=== PATIENT | female | born 1935 | race Caucasian/White ===

== ENCOUNTER 2017-01-15 15:36 | Emergency (ER) | payer MEDICARE, OTHER ==
[2017-01-15 15:41] VITALS: BP 188/74
--- NOTE | 2017-01-15 16:08 | UC ---
Knee Pain HPI - HPI Summary HPI Summary: FELL WHILE WALKING TODAY AROUND 2PM. LANDED ON CONCRETE ON HER KNEES. SMALL ABRASION LEFT KNEE BUT MOST OF THE PAIN IS IN HER RIGHT KNEE WHICH IS ALSO SWOLLEN. CAN WALK WITH A LIMP. NO PREVIOUS KNEE INJURY. HAS H/O PARKINSONS. - History of Current Complaint Chief Complaint: UCLowerExtremity Stated Complaint: FALL - BILAT KNEE INJURIES Time Seen by Provider: 01/15/17 15:59 Hx Obtained From: Patient, Family/Squeak Rattle And Leak Repairer - Onset/Duration: Sudden Onset, Lasting Hours, Still Present Severity Initially: Moderate Severity Currently: Moderate Location Of Injury: RIGHT KNEE Pain Intensity: 9 Pain Scale Used: 0-10 Numeric Character: Sharp Aggravating Factor(s): Movement, Weight Bearing Alleviating Factor(s): Rest Associated Signs And Symptoms: Positive: Swelling, Bruising Able to Bear Weight: Yes - Allergies/Home Medications Allergies/Adverse Reactions: Allergies Allergy/AdvReac Type Severity Reaction Status Date / Time No Known Allergies Allergy Verified 01/15/17 15:41 Home Medications: Home Medications Aspirin TAB* [Aspirin 325 MG TAB*] 650 mg PO PRN 01/15/17 [History] Carbidopa/Levodop 10/100 MG(*) [Sinemet 10/100 TAB(*)] 1 tab PO TID 01/15/17 [ History Confirmed 01/15/17] PMH/Surg Hx/FS Hx/Imm Hx Other Neurological History: PARKINSONS DISEASE - Surgical History Surgical History: None - Family History Known Family History: Negative: Hypertension, Diabetes - Social History Alcohol Use: Occasionally Substance Use Type: None Smoking Status (MU): Never Smoked Tobacco Review of Systems Constitutional: Negative Skin: Other - ABRASIONS Respiratory: Negative Cardiovascular: Negative Gastrointestinal: Negative Musculoskeletal: Arthralgia, Decreased ROM, Edema All Other Systems Reviewed And Are Negative: Yes Physical Exam Triage Information Reviewed: Yes Appearance: Well-Appearing, No Pain Distress, Well-Nourished Vital Signs: Initial Vital Signs Temp 98 F 01/15/17 15:38 Pulse 64 01/15/17 15:38 Resp 16 01/15/17 15:38 BP 188/74 01/15/17 15:38 Pulse Ox 99 01/15/17 15:38 Vital Signs Reviewed: Yes Eyes: Positive: Conjunctiva Clear ENT: Positive: Hearing grossly normal Neck: Positive: Supple Respiratory: Positive: No respiratory distress, No accessory muscle use Cardiovascular: Positive: Pulses Normal Abdomen Description: Positive: Soft Musculoskeletal: Positive: ROM Limited @ - RIHGT KNEE, Edema @ - RIGHT KNEE, Other: - KNEE EXAM LIMITED BY PT DISCOMFORT. MILDLY TENDER DIFFUSELY. NO JOINT LINE TENDERNESS SPECIFICALLY. LIGAMENTS INTACT TO VARUS AND VALGUS STERSS TESTING. Neurological: Positive: Alert Psychological: Positive: Age Appropriate Behavior Skin: Positive: Other - SPFL ABRASIONS BILATERAL KNEES Diagnostics - Radiology RIGHT KNEE XRAY Xray Interpretation: Positive (See Comments) - Anterior soft tissue swelling and small joint effusion. No fracture evident. Radiology Interpretation Completed By: Radiologist Knee Pain Course/Dx - Course Course Of Treatment: XRAY SHOWS SOFT TISSUE SWELLING AND EFFUSION. KNEE IMMOBILIZER. FOLLOW-UP ORTHO. - Differential Dx/Diagnosis Provider Diagnoses: RIGHT KNEE CONTUSION/EFFUSION Discharge - Discharge Plan Condition: Stable Disposition: HOME Patient Education Materials: Contusion in Adults (ED), Swollen Knee Joint (ED) Referrals: Katerin Sullivan MD [Medical Doctor] - 1 Week Juju Canela MD [Primary Care Provider] - If Needed Additional Instructions: NO FRACTURE SEEN ON XRAY TODAY. SOFT TISSUE SWELLING AND EFFUSION. CONTUSION: Your injury has resulted in a contusion -- a crushing of the deep tissues. No injury to important structures was detected during the physician's exam. Contusions vary in the amount of pain they cause, and in the length of time required for healing. Typically, the area will become bruised, and will remain painful to touch for two or three weeks. However, most patients are back to working and playing within a few days. After the initial period of rest and cold-packs, your symptoms (together with the doctor's recommendations) will determine how rapidly you can get back to full activity. Usually this means "do what feels okay, but don't do things that hurt." If re-examination was recommended, it's important to follow up as instructed. Call the doctor or return any time if pain increases, if swelling becomes severe, if you develop numbness or weakness in an injured extremity, or if any other alarming symptoms occur. REST, ICE, COMPRESS, ELEVATE. FOLLOW-UP WITH ORTHO.
--- NOTE | 2017-01-15 16:37 | RAD ---
Indication: RIGHT knee pain and edema post fall. Comparison: None. Technique: RIGHT knee: AP, tunnel, lateral, sunrise views. Report: Bone density appears decreased corresponding with osteoporosis on April 01, 2016 DEXA scan. Small suprapatellar joint effusion. No cortical disruption or suspicious trabecular irregularity to suggest fracture. Normal articular alignment. Preserved joint spaces. Subtle chondrocalcinosis at the medial and lateral joint compartments. Anterior soft tissue swelling. IMPRESSION: Anterior soft tissue swelling and small joint effusion. No fracture evident.
== END 2017-01-15 17:16 | disposition home or self-care (01) ==
LOC: UCEAST 15:36
DX: S80.01XA Contusion of right knee, initial encounter (principal); M25.461 Effusion, right knee; W19.XXXA Unspecified fall, initial encounter; Y93.9 Activity, unspecified; Y92.9 Unspecified place or not applicable; Y99.9 Unspecified external cause status; G20 Parkinson's disease
CPT/HCPCS: 99212; G0463

== ENCOUNTER 2017-09-22 14:22 | Emergency (ER) | payer MEDICARE, OTHER ==
[2017-09-22] MEDS ORDERED: NS 0.9% 1000 ML* 1,000 ML IV ONE (17:19)
[2017-09-22] MEDS ORDERED: Ondansetron INJ* 2 MG/ML VIAL IV ONE (17:24)
[2017-09-22 17:38] LABS: ABS Basophils 0.1 10^3/ul (0-0.2); ABS Eosinophils 0.1 10^3/ul (0-0.6); ABS Lymphocytes 1.3 10^3/ul (1.0-4.8); ABS Monocytes 0.4 10^3/ul (0-0.8); ABS Neutrophils 4.6 10^3/ul (1.5-7.7); ABS Nucleated RBC 0 10^3/ul; Eosinophil % 2.1 % (0-6); Hematocrit 44 % (35-47); Hemoglobin 14.9 g/dl (12.0-16.0); Lymphocyte % 20.1 % (25-47); Mean Corpuscular HGB Conc 34 g/dl (31-36); Mean Corpuscular Hemoglobin 29 pg (27-31); Mean Corpuscular Volume 86 fL (80-97); Mean Platelet Volume 8.1 um3 (7.4-10.4); Nucleated Red Blood Cells % 0.2; Platelet Count 306 10^3/ul (150-450); Red Blood Count 5.13 10^6/ul (4.0-5.4); Red Cell Distribution Width 14 % (10.5-15); White Blood Count 6.6 10^3/ul (3.5-10.8)
[2017-09-22 17:54] LABS: EGFR Non-African American 80.1 (>60)
[2017-09-22 18:20] LABS: Urine Appearance Clear; Urine Blood 2+ (Negative); Urine Color Straw; Urine Ketones 1+ (Negative); Urine Protein Negative (Negative); Urine Specific Gravity 1.009 (1.010-1.030); Urine Urobilinogen Negative (Negative)
[2017-09-22] MEDS ORDERED: Iohexol 300* (CONTRAST) 10 ML SDV IV ONE (18:44)
--- NOTE | 2017-09-22 19:49 | RAD ---
INDICATION: Abdominal pain and constipation COMPARISON: KUB September 22, 2017 TECHNIQUE: Axial source images were obtained from the hemidiaphragms to the symphysis pubis following administration of oral and intravenous contrast. 65 mL Omnipaque 300 was utilized. Coronal and sagittal reconstructed images were acquired. Lung bases: The lung bases are clear. Liver: The liver is normal in size. There are no masses. There is no ductal dilatation. Gallbladder: There are no calcified gallstones. There is no evidence of wall thickening or pericholecystic fluid. Spleen: The spleen is normal in size. There are no masses. Pancreas: There is no focal pancreatic mass or ductal dilatation. Adrenal glands: There is no evidence of adrenal mass. Kidneys: The kidneys are normal in size and position. There are prompt nephrograms and there is prompt excretion bilaterally. There is a 5 mm hypodensity in the lower pole left kidney likely representing a small cyst. There is no evidence of nephrolithiasis. Adenopathy: There is no evidence of adenopathy by size criteria. Fluid collections: There are no free or localized fluid collections. Vessels:There are no significant atherosclerotic changes involving the aorta. There is no focal aneurysm. The iliac vessels are normal in caliber. The IVC appears normal. GI tract: There are no acute CT bowel findings. There is no obstruction. The stomach and small bowel appear normal. There is significant colonic redundancy. There is stool and transverse and left colon Pelvic organs: The uterus and adnexa appear normal Bladder: There are no bladder masses. Abdominal and pelvic soft tissues: The extraperitoneal abdominal and pelvic soft tissues appear normal.. Osseous structures: There are no acute osseous findings. Other: None IMPRESSION: COLONIC REDUNDANCY WITH RETAINED STOOL LEFT COLON
[2017-09-22 22:40] VITALS: BP 157/64
--- NOTE | 2017-09-23 05:05 | ED ---
Kane Chandler Tecjoon, scribed for Vitaliy Saavedra MD on 09/22/17 at 2157 . Progress - Progress Note Progress Note: CT Abd/Pel reveals, per radiologist, IMPRESSION: COLONIC REDUNDANCY WITH RETAINED STOOL LEFT COLON. ED physician has reviewed this radiology report. Course/Dx - Course Course Of Treatment: Patient was received from Dr. Mas at sign out, awaiting CT Abd/Pel. CT Abd/Pel reveals, per radiologist, IMPRESSION: COLONIC REDUNDANCY WITH RETAINED STOOL LEFT COLON. ED physician has reviewed this radiology report. Patient will be discharged home with dx of constipation. Patient is very anxious to leave. Patient is advised to follow up with PCP in 3 days. Patient is agreeable to this plan. - Diagnoses Provider Diagnoses: Constipation Discharge - Sign-Out/Discharge Documenting (check all that apply): Discharge - discharged, Receiving Sign-Out Receiving patient FROM: Clarence Mas - Discharge Plan Condition: Stable Disposition: HOME Patient Education Materials: Constipation (ED) Referrals: Juju Canela MD [Primary Care Provider] - 3 Days Additional Instructions: Return to ED for any new or worsening symptoms. The documentation as recorded by the Kane cruz Tecjoon accurately reflects the service I personally performed and the decisions made by Quentin oneill Abdul, MD.
--- NOTE | 2017-09-24 17:44 | PN ---
Progress Note - Progress Note Date of Service: 09/24/17 Note: Patient urine culture grew Strept dysgalactiae 10-25,000 and normal elinor 1-10, 000. as this is not a significant amount and likely a contaminant as is normal elinor growth will not treat at this time.
--- NOTE | 2017-09-26 08:03 | ED ---
Gene Chandler Angela, scribed for Clarence Mas MD on 09/22/17 at 1720 . GI/ HPI - HPI Summary HPI Summary: This pt is a 82 y/o female presenting to [facility] referred by her PCP c/o constipation. Pt reports that over the past 2-3 weeks it has been impossible to have a bowel movement. She states that she has used laxatives and suppositories with no relief. Pt notes only "brown fluffy stuff" and liquid come out when having a bowel movement. She additionally notes nausea and abdominal pain. Denies vomiting. Pt had an abdomen XR and was called by Dr. Canela (her PCP) to let her know that she had a blockage and needed to come to the ED. PMHx: Parkinson's disease. - History of Current Complaint Chief Complaint: EDGeneral Time Seen by Provider: 09/22/17 17:13 Stated Complaint: ENEMA(DR BOWEN) Hx Obtained From: Patient Onset/Duration: Started Weeks Ago, Still Present Timing: Constant, Lasting Weeks Current Severity: Severe Pain Intensity: 3 Location of Pain: Diffuse Pain Characteristics: Aching Associated Signs and Symptoms: Positive: Nausea, Constipation, Abdominal Pain. Negative: Vomiting, Diarrhea, Fever Aggravating Factor(s): Nothing Alleviating Factor(s): Nothing - Allergy/Home Medications Allergies/Adverse Reactions: Allergies Allergy/AdvReac Type Severity Reaction Status Date / Time No Known Allergies Allergy Verified 09/22/17 17:02 PMH/Surg Hx/FS Hx/Imm Hx Endocrine/Hematology History: Denies: Hx Diabetes Cardiovascular History: Denies: Hx Hypertension Neurological History: Reports: Other Neuro Impairments/Disorders - Parkinson's disease Infectious Disease History: No Infectious Disease History: Denies: Traveled Outside the [place] in Last 30 Days - Family History Known Family History: Negative: Hypertension, Diabetes - Social History Alcohol Use: Occasionally Substance Use Type: Reports: None Smoking Status (MU): Never Smoked Tobacco Review of Systems Negative: Fever Eyes: Negative ENT: Negative Gastrointestinal: Other - constipation Positive: Abdominal Pain, Nausea. Negative: Vomiting Musculoskeletal: Negative Skin: Negative Neurological: Negative All Other Systems Reviewed And Are Negative: Yes Physical Exam - Summary Physical Exam Summary: VITAL SIGNS: Reviewed. GENERAL: Patient is a well-developed and nourished female who is lying comfortable in the stretcher. Patient is not in any acute respiratory distress. Pt seems to be dehydrated. HEAD AND FACE: No signs of trauma. No ecchymosis, hematomas or skull depressions. No sinus tenderness. EYES: PERRLA, EOMI x 2, No injected conjunctiva, no nystagmus. EARS: Hearing grossly intact. Ear canals and tympanic membranes are within normal limits. MOUTH: Oropharynx within normal limits. NECK: Supple, trachea is midline, no adenopathy, no JVD, no carotid bruit, no c- spine tenderness, neck with full ROM. CHEST: Symmetric, no tenderness at palpation LUNGS: Clear to auscultation bilaterally. No wheezing or crackles. CVS: Regular rate and rhythm, S1 and S2 present, no murmurs or gallops appreciated. ABDOMEN: Soft, non-tender. No signs of distention. No rebound no guarding, and no masses palpated. Decreased bowel sounds. EXTREMITIES: FROM in all major joints, no edema, no cyanosis or clubbing. NEURO: Alert and oriented x 3. No acute neurological deficits. Speech is normal and follows commands. SKIN: Dry and warm. There is increased turgor of the skin. Triage Information Reviewed: Yes Vital Signs On Initial Exam: Initial Vitals Temp Pulse Resp BP Pulse Ox 98.8 F 66 19 196/77 99 09/22/17 14:31 09/22/17 14:31 09/22/17 14:31 09/22/17 14:31 09/22/17 14:31 Vital Signs Reviewed: Yes Diagnostics - Vital Signs Vital Signs Temp Pulse Resp BP Pulse Ox 09/22/17 17:00 60 173/70 100 09/22/17 16:55 62 100 09/22/17 16:53 193/74 09/22/17 15:46 98.2 F 57 153/71 100 09/22/17 14:31 98.8 F 66 19 196/77 99 - Laboratory Result Diagrams: 09/22/17 17:30 09/22/17 17:30 Lab Statement: Any lab studies that have been ordered have been reviewed, and results considered in the medical decision making process. - Radiology Chest XR Xray Interpretation: Positive (See Comments) - IMPRESSION: Nonspecific bowel gas pattern. Large amount of stool within the colon. Dr. Mas has reviewed this radiology report Radiology Interpretation Completed By: Radiologist JERMAINU Course/Dx - Course Assessment/Plan: This pt is a 82 y/o female presenting to [facility] referred by her PCP c/o constipation. Pt reports that over the past 2-3 weeks it has been impossible to have a bowel movement. She states that she has used laxatives and suppositories with no relief. Pt notes only "brown fluffy stuff" and liquid come out when having a bowel movement. She additionally notes nausea and abdominal pain. Denies vomiting. Pt had an abdomen XR and was called by Dr. Canela (her PCP) to let her know that she had a blockage and needed to come to the ED. PMHx: Parkinson's disease. Test results without any significant abnormalities except for ALT of 3. In the ED course the pt was given IV fluids and Zofran. Chest XR (ordered by Dr. Canela) shows nonspecific bowel gas pattern. Large amount of stool within the colon. I ordered a CT abdomen/pelvis and at this point it is still pending. Therefore the pt will be signed out to Dr. Saavedra to follow up on the abd/pelvis CT for further work up and management. Pt is hemodynamically stable, alert and oriented x3. - Diagnoses Provider Diagnoses: Constipation, Abdominal pain Discharge - Sign-Out/Discharge Documenting (check all that apply): Sign-Out Patient Signing out patient TO: Vitaliy Saavedra - pending dispo, awaiting CT A/P - Discharge Plan Condition: Stable Referrals: Juju Canela MD [Primary Care Provider] - The documentation as recorded by the Gene cruz Angela accurately reflects the service I personally performed and the decisions made by me, Clarence Mas MD.
== END 2017-09-22 22:38 | disposition home or self-care (01) ==
LOC: ED 14:22
DX: K59.00 Constipation, unspecified (principal); R10.9 Unspecified abdominal pain
CPT/HCPCS: 36415; 74018; 74177; 80053; 81003; 81015; 83605; 83690; 85025; 86140; 87077; 87086; 99285; Q9967

== ENCOUNTER 2019-07-20 12:56 | Emergency (ER) | payer MEDICARE, OTHER ==
--- NOTE | 2019-07-20 14:22 | ED ---
Abdominal Pain/Female - HPI Summary HPI Summary: Patient is an 83 y/o F presenting to the ED for a chief complaint of alternating diarrhea and constipation for the last several years. On the morning of 07/20/19, patient used an enema with some relief. Patient also reports lower abdominal cramping and abdominal distention. She is able to pass gas. Her last bowel movement was on 07/07/19. Patient denies vomiting or other myalgia. Any history of abdominal surgery history or colonoscopy is denied. On medical record review, patient had an abdomen x-ray on 07/20/19 for abdominal pain that showed a possible early bowel obstruction. - History of Current Complaint Chief Complaint: EDAbdPain Stated Complaint: DIARREA/STOMACH PAIN PER PT Time Seen by Provider: 07/20/19 13:57 Hx Obtained From: Patient Onset/Duration: Sudden Onset, Still Present Timing: Constant Severity Initially: Mild Severity Currently: None Pain Intensity: 0 Pain Scale Used: 0-10 Numeric Character: Cramping Aggravating Factor(s): Nothing Alleviating Factor(s): Other: - Enema Associated Signs and Symptoms: Positive: Constipation, Diarrhea Allergies/Adverse Reactions: Allergies Allergy/AdvReac Type Severity Reaction Status Date / Time No Known Allergies Allergy Verified 07/20/19 13:05 PMH/Surg Hx/FS Hx/Imm Hx Previously Healthy: Yes Endocrine/Hematology History: Denies: Hx Diabetes Cardiovascular History: Denies: Hx Hypertension Sensory History: Denies: Hx Legally Blind, Hx Deafness Opthamlomology History: Denies: Hx Legally Blind EENT History: Denies: Hx Deafness Neurological History: Reports: Other Neuro Impairments/Disorders - Parkinson's disease - Surgical History Surgical History: None Surgery Procedure, Year, and Place: None Infectious Disease History: No Infectious Disease History: Denies: Traveled Outside the [place] in Last 30 Days - Family History Known Family History: Negative: Hypertension, Diabetes - Social History Occupation: Retired Lives: With Family Alcohol Use: Rare Hx Substance Use: No Substance Use Type: Reports: None Hx Tobacco Use: No Smoking Status (MU): Never Smoked Tobacco Review of Systems Positive: Abdominal Pain - Cramping, Diarrhea, Other - Positive constipation and abdominal distention. Negative: Vomiting Negative: Myalgia All Other Systems Reviewed And Are Negative: Yes Physical Exam - Summary Physical Exam Summary: Constitutional: Well-developed, Well-nourished, Alert. (-) Distressed Skin: Warm, Dry HENT: Normocephalic; Atraumatic Eyes: Conjunctiva normal Neck: Musculoskeletal ROM normal neck. (-) JVD, (-) Stridor, (-) Nuchal rigidity Cardio: Rhythm regular, rate normal, Heart sounds normal; Intact distal pulses; Radial pulses are 2+ and symmetric. (-) Murmur Pulmonary/Chest wall: Effort normal. (-) Respiratory distress, (-) Wheezes, (-) Rales Abd: Soft, (-) tenderness, (-) Guarding, (-) Rebound. Mild abdominal distention. Musculoskeletal: (-) Edema Lymph: (-) Cervical adenopathy Neuro: Alert, Oriented x3 Psych: Mood and affect Normal Triage Information Reviewed: Yes Vital Signs On Initial Exam: Initial Vitals Temp Pulse Resp BP Pulse Ox 98.0 F 70 21 205/97 99 07/20/19 13:00 07/20/19 13:00 07/20/19 13:00 07/20/19 13:00 07/20/19 13:00 Vital Signs Reviewed: Yes Procedures - Sedation Patient Received Moderate/Deep Sedation with Procedure: No Diagnostics - Vital Signs Vital Signs Temp Pulse Resp BP Pulse Ox 07/20/19 13:00 98.0 F 70 21 205/97 99 - Laboratory Result Diagrams: 07/20/19 14:38 07/20/19 14:38 Lab Statement: Any lab studies that have been ordered have been reviewed, and results considered in the medical decision making process. - CT Abdomen/Pelvis CT CT Interpretation Completed By: Radiologist Summary of CT Findings: Abdomen/Pelvis CT IMPRESSION: #. Hepatosteatosis. #. No pathologic process of the gastrointestinal tract evident. #. Significant interval worsening of degenerative disc disease at the L4-L5 level as described. While typical degenerative disc disease is favored in the correct clinical context such as fever of unknown origin indolent osteomyelitis discitis should be considered. Reviewed by Dr. Riggs. 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 sent home w amlodipine Abdominal Pain Fem Course/Dx - Course Course Of Treatment: 83 y/o F w hx constipation p/w constipation and abd distension. - abd soft but distended, KUB from earlier w ?SBO. Check CT A/P. - BP elevated, has been in past. No CP/malhotra. Will recheck, possibly send home w medications - Diagnoses Provider Diagnoses: Constipation Discharge ED - Sign-Out/Discharge Documenting (check all that apply): Patient Departure - Discharge - Discharge Plan Condition: Stable Disposition: HOME Prescriptions: amLODIPine TAB* [Norvasc 5 mg TAB*] 5 mg PO DAILY 30 Days #30 tab Patient Education Materials: Constipation (DC) Referrals: Juju Canela MD [Primary Care Provider] - Additional Instructions: You were seen in the emergency department for constipation. Your CT didn't show any obstruction. It did show degenerative disc disease. If any studies were not completed at the time of discharge you will be called with the relevant results. Please follow up with your primary care doctor in next 2-3 days and return to emergency department for worsening pain, inability to eat/drink, fevers or concerning symptoms. It was a pleasure taking care of you today. - Billing Disposition and Condition Condition: STABLE Disposition: Home - Attestation Statements Document Initiated by Balaji: Yes Documenting Scribe: Paloma Calzada Provider For Whom Balaji is Documenting (Include Credential): Michael Riggs MD Scribe Attestation: I, Paloma Calzada, scribed for Michael Riggs MD on 07/20/19 at 1655. Scribe Documentation Reviewed: Yes Provider Attestation: The documentation as recorded by the Paloma cruz accurately reflects the service I personally performed and the decisions made by me, Michael Riggs MD Status of Scribe Document: Viewed
[2019-07-20 14:44] LABS: ABS Eosinophils 0.1 10^3/ul (0-0.6); ABS Monocytes 0.4 10^3/ul (0-0.8); ABS Neutrophils 5.5 10^3/ul (1.5-7.7); Eosinophil % 1.4 %; Hematocrit 44 % (35-47); Hemoglobin 14.9 g/dL (12.0-16.0); Mean Corpuscular HGB Conc 34 g/dL (31-36); Mean Corpuscular Hemoglobin 30 pg (27-31); Mean Corpuscular Volume 89 fL (80-97); Mean Platelet Volume 7.8 fL (7.4-10.4); Platelet Count 323 10^3/uL (150-450); Red Blood Count 4.97 10^6 /uL (3.70-4.87); Red Cell Distribution Width 14 % (10-15); White Blood Count 6.9 10^3/uL (3.5-10.8)
[2019-07-20 15:05] LABS: ALT < 3 U/L (7-52); AST 15 U/L (13-39); Albumin 4.4 g/dL (3.2-5.2); Albumin/Globulin Ratio 1.8 (1-3); Alkaline Phosphatase 81 U/L (34-104); Anion Gap 6 mmol/L (2-11); BUN/Creatinine Ratio 17.6 (8-20); Blood Urea Nitrogen 13 mg/dL (6-24); CO2 Carbon Dioxide 28 mmol/L (22-32); Calcium 9.5 mg/dL (8.6-10.3); Chloride 101 mmol/L (101-111); EGFR African American 90.7 (>60); Globulin 2.4 g/dL (2-4); Glucose 94 mg/dL (70-100); Potassium 4.5 mmol/L (3.5-5.0); Sodium 135 mmol/L (135-145); Total Protein 6.8 g/dL (6.4-8.9)
[2019-07-20] MEDS ORDERED: Iohexol 300* (CONTRAST) 10 ML SDV IV ONE (16:08)
[2019-07-20] MEDS ORDERED: Magnesium Hydroxide LIQ* 30 ML UDC PO ONE (16:46)
[2019-07-20] MEDS ORDERED: amLODIPine TAB* 5 MG PO ONE (16:54)
[2019-07-20 17:05] VITALS: BP 208/83
== END 2019-07-20 16:58 | disposition home or self-care (01) ==
LOC: ED 12:56
DX: K59.00 Constipation, unspecified (principal); R19.7 Diarrhea, unspecified; K76.89 Other specified diseases of liver; M51.36 Other intervertebral disc degeneration, lumbar region; G20 Parkinson's disease; R10.9 Unspecified abdominal pain
CPT/HCPCS: 36415; 74177; 80053; 85025; 99282; A9270-GY; Q9967

== ENCOUNTER 2020-03-24 15:09 | Inpatient (IN) ==
[2020-03-24] MEDS ORDERED: NS 0.9% 1000 ml BAG 1,000 ML IV ONE (15:25)
[2020-03-24 16:24] LABS: ABS Lymphocytes 1.7 10^3/ul (1.0-4.8); ABS Monocytes 0.8 10^3/ul (0-0.8); ABS Neutrophils 5.5 10^3/ul (1.5-7.7); Hematocrit 36 % (35-47); Hemoglobin 12.4 g/dL (12.0-16.0); Lymphocyte % 20.7 %; Mean Corpuscular HGB Conc 34 g/dL (31-36); Mean Corpuscular Hemoglobin 29 pg (27-31); Mean Corpuscular Volume 85 fL (80-97); Mean Platelet Volume 8.3 fL (7.4-10.4); Nucleated Red Blood Cells % 0.1; Platelet Count 196 10^3/uL (150-450); Red Blood Count 4.24 10^6 /uL (3.70-4.87); Red Cell Distribution Width 14 % (10-15)
[2020-03-24 16:45] LABS: Troponin I 0.02 ng/mL (<0.03)
[2020-03-24 16:46] LABS: Albumin 2.7 g/dL (3.2-5.2); Albumin/Globulin Ratio 1.5 (1-3); BUN/Creatinine Ratio 38.2 (8-20); EGFR Non-African American 183.4 (>60); Globulin 1.8 g/dL (2-4); Magnesium 1.5 mg/dL (1.9-2.7); Potassium 3.2 mmol/L (3.5-5.0); Total Bilirubin 0.5 mg/dL (0.2-1.0); Total Protein 4.5 g/dL (6.4-8.9)
[2020-03-24] MEDS ORDERED: Potassium Chlor 20 meq TAB.ER PO ONE (16:48)
[2020-03-24] MEDS ORDERED: Magnesium Sulfate 2 gm BAG 2 GM/50 ML BAG IVPB ONE (16:48)
[2020-03-24 16:53] LABS: Calcium 6.1 mg/dL (8.6-10.3)
[2020-03-24 17:00] LABS: TSH Ultra Thyroid Stim Horm 0.33 mcIU/mL (0.34-5.60)
[2020-03-24] MEDS ORDERED: Calcium Gluconate 2 GM in NS 0.9% 100 ml BAG 100 ML IVPB ONE (17:08)
[2020-03-24] MEDS ORDERED: Iohexol 300 (CONTRAST) 10 ML SDV IV ONE (17:21)
[2020-03-24 17:24] LABS: Urine Appearance Turbid; Urine Bilirubin Negative (Negative); Urine Blood Negative (Negative); Urine Color Yellow; Urine Glucose Negative (Negative); Urine Ketones 1+ (Negative); Urine Nitrite Negative (Negative); Urine Protein 1+(30 mg/dL) (Negative); Urine Specific Gravity 1.017 (1.010-1.030); Urine Urobilinogen Negative (Negative)
[2020-03-24 17:34] LABS: Urine Bacteria Absent (Absent); Urine Red Blood Cell 1+(3-5/hpf) (Absent); Urine White Blood Cell Absent (Absent)
[2020-03-24] MEDS ORDERED: Carbidopa/Levodop 25/100 MG TAB PO PRN (18:23)
[2020-03-24] MEDS ORDERED: NS 0.9% w/ 40 Meq KCL 1000 ML 1,000 ML IV SCH (19:00)
[2020-03-24] MEDS ORDERED: Carbidopa/Levodop 25/100 MG TAB PO SCH (19:00)
[2020-03-24 19:36] LABS: ABS Lymphocytes 2.2 10^3/ul (1.0-4.8); ABS Monocytes 0.8 10^3/ul (0-0.8); Hematocrit 35 % (35-47); Hemoglobin 12.2 g/dL (12.0-16.0); Lymphocyte % 27.7 %; Mean Corpuscular HGB Conc 35 g/dL (31-36); Mean Corpuscular Hemoglobin 30 pg (27-31); Mean Corpuscular Volume 86 fL (80-97); Nucleated Red Blood Cells % 0.1; Platelet Count 204 10^3/uL (150-450); Red Blood Count 4.12 10^6 /uL (3.70-4.87); Red Cell Distribution Width 14 % (10-15); White Blood Count 8.1 10^3/uL (3.5-10.8)
[2020-03-24 19:50] LABS: Activated Partial Thrombo Time 27.9 seconds (26.0-38.0); INR 1.15 (0.82-1.09)
[2020-03-24 19:52] LABS: EGFR African American 130.1 (>60); EGFR Non-African American 107.6 (>60)
[2020-03-24] MEDS: Carbidopa/Levodop CR 50/200 TAB.CR PO SCH (22:55)
[2020-03-25] MEDS: Heparin 5000 UNITS/ML 1 mL VIAL SUBCUT SCH ×3 (00:03→21:08)
[2020-03-25] MEDS: cefTRIAXone 1 gm/50 mL NS BAG 1 GM/50 ML BAG IVPB SCH ×2 (00:06→19:21)
[2020-03-25] MEDS: Carbidopa/Levodop 25/100 MG TAB PO SCH ×8 (00:15→21:07)
[2020-03-25 06:02] LABS: ABS Lymphocytes 1.2 10^3/ul (1.0-4.8); ABS Monocytes 0.6 10^3/ul (0-0.8); ABS Neutrophils 3.8 10^3/ul (1.5-7.7); Hematocrit 37 % (35-47); Hemoglobin 12.4 g/dL (12.0-16.0); Lymphocyte % 21.2 %; Mean Corpuscular HGB Conc 34 g/dL (31-36); Mean Corpuscular Hemoglobin 29 pg (27-31); Mean Corpuscular Volume 85 fL (80-97); Mean Platelet Volume 7.7 fL (7.4-10.4); Nucleated Red Blood Cells % 0.1; Platelet Count 209 10^3/uL (150-450); Red Blood Count 4.35 10^6 /uL (3.70-4.87); Red Cell Distribution Width 14 % (10-15); White Blood Count 5.6 10^3/uL (3.5-10.8)
[2020-03-25 07:07] LABS: Free T4 0.79 ng/dL (0.61-1.12)
[2020-03-25 07:47] LABS: Calcium 8.3 mg/dL (8.6-10.3); Potassium 4.8 mmol/L (3.5-5.0)
[2020-03-25 07:53] LABS: BUN/Creatinine Ratio 21.3 (8-20); C Reactive Protein 117.55 mg/L (<8.01); EGFR African American 113.1 (>60); EGFR Non-African American 93.4 (>60)
[2020-03-25] MEDS: Cholecalciferol (VIT D3) 1,000 unit TAB PO SCH (08:09)
[2020-03-25] MEDS ORDERED: Gadoteridol (CONTRAST) 279.3 MG/ML 10 ML IV ONE (13:36)
[2020-03-25 14:50] LABS: Thyroid Peroxidase Antibodies 1.21 IU/mL (<9)
[2020-03-25 16:54] LABS: Influenza A Molecular Negative (Negative); Influenza B Molecular Negative (Negative)
[2020-03-25] MEDS: Carbidopa/Levodop CR 50/200 TAB.CR PO SCH (21:06)
[2020-03-26] MEDS: Carbidopa/Levodop 25/100 MG TAB PO SCH ×6 (05:42→17:48)
[2020-03-26 07:03] LABS: BUN/Creatinine Ratio 28.3 (8-20); Calcium 8.1 mg/dL (8.6-10.3); EGFR African American 115.2 (>60); EGFR Non-African American 95.2 (>60); Potassium 4.7 mmol/L (3.5-5.0)
[2020-03-26 07:46] LABS: Folate 10.87 ng/mL (>3.99)
[2020-03-26] MEDS ORDERED: Magnesium Hydroxide LIQ 30 ML UDC PO SCH (09:00)
[2020-03-26] MEDS: Cholecalciferol (VIT D3) 1,000 unit TAB PO SCH (09:10)
[2020-03-26] MEDS: Heparin 5000 UNITS/ML 1 mL VIAL SUBCUT SCH ×2 (09:10→21:26)
[2020-03-26 09:51] LABS: HIV 4th Generation Nonreactive (Nonreactive)
[2020-03-26] MEDS ORDERED: Thiamine 100 MG/ML 2 ml VIAL 500 MG in NS 0.9% 250 ml 250 ML IV ONE (15:08)
[2020-03-26 15:13] LABS: Body Fluid Source Cerebral Spinal
[2020-03-26 15:40] LABS: CSF Glucose 58 mg/dL (40-70)
[2020-03-26] MEDS: cefTRIAXone 2 GM ADDV.VIAL 2 GM in NS 0.9% 100 ml BAG 100 ML IV SCH (16:29)
[2020-03-26] MEDS ORDERED: Carbidopa/Levodop 25/100 MG TAB PO SCH (21:00)
[2020-03-26] MEDS: Carbidopa/Levodop CR 50/200 TAB.CR PO SCH (21:26)
[2020-03-27 04:48] LABS: Hematocrit 36 % (35-47); Hemoglobin 12.1 g/dL (12.0-16.0); Mean Corpuscular HGB Conc 34 g/dL (31-36); Mean Corpuscular Hemoglobin 29 pg (27-31); Mean Corpuscular Volume 86 fL (80-97); Mean Platelet Volume 7.6 fL (7.4-10.4); Platelet Count 214 10^3/uL (150-450); Red Blood Count 4.18 10^6 /uL (3.70-4.87); Red Cell Distribution Width 15 % (10-15); White Blood Count 4.6 10^3/uL (3.5-10.8)
[2020-03-27 05:04] LABS: BUN/Creatinine Ratio 28.3 (8-20); Calcium 8.1 mg/dL (8.6-10.3); EGFR African American 115.2 (>60); EGFR Non-African American 95.2 (>60); Potassium 4.4 mmol/L (3.5-5.0)
[2020-03-27 05:21] LABS: ABS Lymphocytes 1.7 10^3/ul (1.0-4.8); ABS Monocytes 0.6 10^3/ul (0-0.8); ABS Neutrophils 2.3 10^3/ul (1.5-7.7); Eosinophil % 0.3 %; Lymphocyte % 36.2 %
[2020-03-27 05:25] LABS: Thyroid Peroxidase Antibodies 1.64 IU/mL (<9)
[2020-03-27] MEDS: Carbidopa/Levodop 25/100 MG TAB PO SCH ×4 (06:29→17:28)
[2020-03-27] MEDS: Cholecalciferol (VIT D3) 1,000 unit TAB PO SCH (08:46)
[2020-03-27] MEDS: Heparin 5000 UNITS/ML 1 mL VIAL SUBCUT SCH ×2 (08:47→21:06)
[2020-03-27] MEDS ORDERED: NS 0.9% 100 ml BAG 100 ML ONE (16:02)
[2020-03-27] MEDS: cefTRIAXone 2 GM ADDV.VIAL 2 GM in NS 0.9% 100 ml BAG 100 ML IV SCH (17:17)
[2020-03-27] MEDS: Carbidopa/Levodop CR 50/200 TAB.CR PO SCH (21:06)
[2020-03-28] MEDS: Carbidopa/Levodop 25/100 MG TAB PO SCH ×4 (05:38→17:13)
[2020-03-28 06:35] LABS: BUN/Creatinine Ratio 22.2 (8-20); Calcium 8.4 mg/dL (8.6-10.3); EGFR African American 108.9 (>60); Potassium 4.2 mmol/L (3.5-5.0)
[2020-03-28 06:42] LABS: C Reactive Protein 77.82 mg/L (<8.01)
[2020-03-28] MEDS ORDERED: Simethicone SUSP ORALSYR 66.66 MG/ML PO PRN (06:47)
[2020-03-28] MEDS: Cholecalciferol (VIT D3) 1,000 unit TAB PO SCH (08:49)
[2020-03-28] MEDS: Heparin 5000 UNITS/ML 1 mL VIAL SUBCUT SCH (08:50)
[2020-03-28] MEDS ORDERED: Metoprolol Tartrate 5 mg VIAL 5 ml VIAL (1 mg/ml) IV ONE (11:34)
[2020-03-28] MEDS: cefTRIAXone 2 GM ADDV.VIAL 2 GM in NS 0.9% 100 ml BAG 100 ML IV SCH (15:58)
[2020-03-28 18:21] LABS: HSV 1 PCR, CSF Negative (Negative); HSV 2 PCR, CSF Negative (Negative)
[2020-03-28] MEDS: Carbidopa/Levodop CR 50/200 TAB.CR PO SCH (19:31)
[2020-03-29] MEDS: Carbidopa/Levodop 25/100 MG TAB PO SCH ×3 (05:18→13:30)
[2020-03-29] MEDS: Cholecalciferol (VIT D3) 1,000 unit TAB PO SCH (08:43)
[2020-03-29 11:33] VITALS: BP 158/69
[2020-03-29 13:55] LABS: CSF West Nile Virus RNA (PCR) Negative (Negative); West Nile Virus Source CSF
[2020-03-29 15:53] LABS: Cytomegalovirus IgG Antibody Negative (Negative); EBV Capsid Ag IgG Ab Positive (Negative); EBV Capsid Ag IgM Ab Negative (Negative); Epstein-Barr Nuclear Antigen Positive (Negative)
[2020-03-29 19:35] LABS: CMV DNA DETECT/QT, P Undetected IU/mL (Undetected)
[2020-03-31 08:54] LABS: Amphiphysin Ab, CSF Negative titer (<1:2); CRMP-5-IgG, CSF Negative titer (<1:2); PCA-Tr, CSF Negative titer (<1:2)
[2020-03-31 12:56] LABS: Albumin 2.6 g/dL (3.4-4.7); Albumin/Globulin Ratio 0.86; Gamma Globulin 1.2 g/dL (0.6-1.6); Total Protein(PEP) 5.5 g/dL (6.3 - 7.9)
[2020-04-01 00:52] LABS: CSF West Nile Virus IgG Ab Negative (Negative); CSF West Nile Virus IgM Ab Negative (Negative)
== END 2020-03-29 15:15 | disposition home health service (06) | DRG 71 ==
LOC: ED 15:09 → MEDTELE 15:09 → OBSVTOIN 18:18 → MEDTELE 21:31
PROVIDERS: ADMIT Internal Medicine; ATTEND Internal Medicine

== ENCOUNTER 2020-12-28 07:43 | Inpatient (IN) ==
[2020-12-28] MEDS ORDERED: NS 0.9% 1000 ml BAG 1,000 ML IV ONE (07:49)
[2020-12-28 08:24] LABS: ABS Lymphocytes 0.7 10^3/ul (1.0-4.8); ABS Monocytes 0.8 10^3/ul (0-0.8); ABS Neutrophils 12.3 10^3/ul (1.5-7.7); Hematocrit 37 % (35-47); Hemoglobin 12.6 g/dL (12.0-16.0); Lymphocyte % 4.9 %; Mean Corpuscular HGB Conc 34 g/dL (31-36); Mean Corpuscular Hemoglobin 29 pg (27-31); Mean Corpuscular Volume 86 fL (80-97); Mean Platelet Volume 8.1 fL (7.4-10.4); Platelet Count 441 10^3/uL (150-450); Red Cell Distribution Width 13 % (10-15); White Blood Count 13.8 10^3/uL (3.5-10.8)
[2020-12-28 08:44] LABS: ALT 4 U/L (7-52); AST 21 U/L (13-39); Albumin 3.8 g/dL (3.2-5.2); Albumin/Globulin Ratio 1.3 (1-3); Alkaline Phosphatase 86 U/L (35-149); Anion Gap 11 mmol/L (2-11); Blood Urea Nitrogen 17 mg/dL (6-24); CO2 Carbon Dioxide 22 mmol/L (22-32); Calcium 8.8 mg/dL (8.6-10.3); Chloride 93 mmol/L (101-111); EGFR African American 141.9 (>60); EGFR Non-African American 117.3 (>60); Globulin 2.9 g/dL (2-4); Glucose 98 mg/dL (70-100); Magnesium 1.9 mg/dL (1.9-2.7); Potassium 3.6 mmol/L (3.5-5.0); Sodium 126 mmol/L (135-145); Total Protein 6.7 g/dL (6.4-8.9)
[2020-12-28 08:49] LABS: Troponin I 0.05 ng/mL (<0.03)
[2020-12-28 08:58] LABS: Urine Appearance Cloudy; Urine Bilirubin Negative (Negative); Urine Blood 1+ (Negative); Urine Color Yellow; Urine Glucose Negative (Negative); Urine Ketones 1+ (Negative); Urine Nitrite Negative (Negative); Urine Protein 1+(30 mg/dL) (Negative); Urine Specific Gravity 1.012 (1.002-1.030); Urine Urobilinogen Negative (Negative)
[2020-12-28 09:18] LABS: Urine Bacteria Absent (Absent); Urine Red Blood Cell 2+(6-10/hpf) (Absent); Urine White Blood Cell Trace(0-5/hpf) (Absent)
[2020-12-28 09:20] LABS: Creatine Kinase 146 U/L (10-223)
[2020-12-28 09:35] LABS: TSH Ultra Thyroid Stim Horm 2.05 mcIU/mL (0.34-5.60)
[2020-12-28] MEDS ORDERED: Iohexol 300 (CONTRAST) 10 ML SDV IV ONE (09:44)
[2020-12-28] MEDS ORDERED: hydrALAZINE 20 mg/ml 1 ML Vial IV IV SLOW PU ONE (11:01)
[2020-12-28] MEDS ORDERED: Polyethylene Glycol 3350 17 GM PACKET PO ONE (11:53)
[2020-12-28] MEDS ORDERED: Ondansetron 4 mg VIAL 2 MG/ML 2 ml VIAL IV PRN (11:56)
[2020-12-28 12:43] LABS: Troponin I 0.07 ng/mL (<0.03)
[2020-12-28 12:48] LABS: Amylase 33 U/L (29-103); Lipase 17 U/L (11.0-82.0)
[2020-12-28] MEDS ORDERED: Piperacillin/Tazobac ADVAN 3.375 GM in NS 0.9% 100 ml BAG 100 ML IV ONE (13:04)
[2020-12-28] MEDS ORDERED: Zosyn per Pharmacy NOTE FOLLOW UP SCH (14:00)
[2020-12-28] MEDS ORDERED: Carbidopa/Levodop 25/100 MG TAB PO SCH (14:00)
[2020-12-28 15:26] LABS: Troponin I 0.06 ng/mL (<0.03)
[2020-12-28] MEDS: Enoxaparin 40 MG/0.4 ML SYR SUBCUT SCH (15:36)
[2020-12-28] MEDS: Carbidopa/Levodop 25/100 MG TAB PO SCH ×3 (15:44→19:35)
[2020-12-28] MEDS ORDERED: Gadoteridol (CONTRAST) 279.3 MG/ML 10 ML IV ONE (19:05)
[2020-12-28] MEDS: ZOSYN 3.375 GM Q8H per EXTENDED INFUSION IV SCH (21:07)
[2020-12-28] MEDS: Polyethylene Glycol 3350 17 GM PACKET PO SCH (21:19)
[2020-12-28] MEDS: Carbidopa/Levodop CR 50/200 TAB.CR PO SCH (21:33)
[2020-12-29] MEDS: ZOSYN 3.375 GM Q8H per EXTENDED INFUSION IV SCH ×2 (03:46→13:33)
[2020-12-29 05:34] LABS: ABS Lymphocytes 0.8 10^3/ul (1.0-4.8); ABS Monocytes 0.9 10^3/ul (0-0.8); ABS Neutrophils 11.5 10^3/ul (1.5-7.7); Eosinophil % 0.3 %; Hematocrit 38 % (35-47); Hemoglobin 12.4 g/dL (12.0-16.0); Lymphocyte % 6.3 %; Mean Corpuscular HGB Conc 33 g/dL (31-36); Mean Corpuscular Hemoglobin 29 pg (27-31); Mean Corpuscular Volume 87 fL (80-97); Mean Platelet Volume 7.4 fL (7.4-10.4); Platelet Count 416 10^3/uL (150-450); Red Blood Count 4.31 10^6 /uL (3.70-4.87); Red Cell Distribution Width 13 % (10-15); White Blood Count 13.3 10^3/uL (3.5-10.8)
[2020-12-29] MEDS: Carbidopa/Levodop 25/100 MG TAB PO SCH ×7 (05:41→18:29)
[2020-12-29 05:49] LABS: Calcium 8.3 mg/dL (8.6-10.3); EGFR African American 106.7 (>60); EGFR Non-African American 88.2 (>60); Potassium 3.6 mmol/L (3.5-5.0)
[2020-12-29] MEDS ORDERED: Psyllium PAK PO SCH (09:00)
[2020-12-29] MEDS: Cholecalciferol (VIT D3) 1,000 unit TAB PO SCH (10:16)
[2020-12-29] MEDS: Enoxaparin 40 MG/0.4 ML SYR SUBCUT SCH (10:16)
[2020-12-29] MEDS: Polyethylene Glycol 3350 17 GM PACKET PO SCH ×2 (10:20→22:43)
[2020-12-29] MEDS ORDERED: NS 0.9% 1000 ml BAG 1,000 ML IV SCH (15:00)
[2020-12-29] MEDS: Magnesium Hydroxide LIQ 30 ML UDC PO SCH ×2 (18:33→22:54)
[2020-12-29] MEDS: Carbidopa/Levodop CR 50/200 TAB.CR PO SCH (22:43)
[2020-12-30] MEDS: ZOSYN 3.375 GM Q8H per EXTENDED INFUSION IV SCH ×2 (00:38→05:19)
[2020-12-30] MEDS: Carbidopa/Levodop 25/100 MG TAB PO SCH ×8 (06:09→17:40)
[2020-12-30 06:27] LABS: ABS Eosinophils 0.1 10^3/ul (0-0.6); ABS Monocytes 0.6 10^3/ul (0-0.8); ABS Neutrophils 7.1 10^3/ul (1.5-7.7); Eosinophil % 1.4 %; Hematocrit 38 % (35-47); Hemoglobin 12.8 g/dL (12.0-16.0); Lymphocyte % 11.6 %; Mean Corpuscular HGB Conc 34 g/dL (31-36); Mean Corpuscular Hemoglobin 29 pg (27-31); Mean Corpuscular Volume 86 fL (80-97); Mean Platelet Volume 7.4 fL (7.4-10.4); Platelet Count 470 10^3/uL (150-450); Red Blood Count 4.45 10^6 /uL (3.70-4.87); Red Cell Distribution Width 13 % (10-15); White Blood Count 8.9 10^3/uL (3.5-10.8)
[2020-12-30 06:44] LABS: Calcium 8.4 mg/dL (8.6-10.3); EGFR African American 106.7 (>60); EGFR Non-African American 88.2 (>60); Potassium 4.2 mmol/L (3.5-5.0)
[2020-12-30] MEDS: Cholecalciferol (VIT D3) 1,000 unit TAB PO SCH (07:44)
[2020-12-30] MEDS: Polyethylene Glycol 3350 17 GM PACKET PO SCH ×2 (07:46→22:00)
[2020-12-30] MEDS: Magnesium Hydroxide LIQ 30 ML UDC PO SCH ×2 (08:29→22:33)
[2020-12-30] MEDS: Enoxaparin 40 MG/0.4 ML SYR SUBCUT SCH (13:05)
[2020-12-30] MEDS: Carbidopa/Levodop CR 50/200 TAB.CR PO SCH (22:01)
[2020-12-31] MEDS: Carbidopa/Levodop 25/100 MG TAB PO SCH ×7 (06:16→20:08)
[2020-12-31 06:18] LABS: ABS Basophils 0.1 10^3/ul (0-0.2); ABS Eosinophils 0.2 10^3/ul (0-0.6); ABS Lymphocytes 1.1 10^3/ul (1.0-4.8); ABS Monocytes 0.6 10^3/ul (0-0.8); ABS Neutrophils 5.8 10^3/ul (1.5-7.7); Eosinophil % 3.1 %; Hematocrit 35 % (35-47); Hemoglobin 12.2 g/dL (12.0-16.0); Lymphocyte % 14.1 %; Mean Corpuscular HGB Conc 35 g/dL (31-36); Mean Corpuscular Hemoglobin 30 pg (27-31); Mean Corpuscular Volume 86 fL (80-97); Mean Platelet Volume 7.7 fL (7.4-10.4); Platelet Count 454 10^3/uL (150-450); Red Blood Count 4.11 10^6 /uL (3.70-4.87); Red Cell Distribution Width 13 % (10-15); White Blood Count 7.9 10^3/uL (3.5-10.8)
[2020-12-31 06:34] LABS: Calcium 8.6 mg/dL (8.6-10.3); EGFR African American 138.7 (>60); EGFR Non-African American 114.6 (>60); Magnesium 2.1 mg/dL (1.9-2.7); Potassium 3.7 mmol/L (3.5-5.0)
[2020-12-31] MEDS: Cholecalciferol (VIT D3) 1,000 unit TAB PO SCH (08:15)
[2020-12-31] MEDS: Polyethylene Glycol 3350 17 GM PACKET PO SCH ×2 (08:15→21:17)
[2020-12-31] MEDS: Magnesium Hydroxide LIQ 30 ML UDC PO SCH ×2 (08:16→21:12)
[2020-12-31] MEDS: Enoxaparin 40 MG/0.4 ML SYR SUBCUT SCH (11:22)
[2020-12-31] MEDS ORDERED: Lorazepam PYXIS KEY PRN (12:52)
[2020-12-31] MEDS ORDERED: LORazepam 2 mg VIAL 1 ml IV PUSH PRN (12:52)
[2020-12-31] MEDS ORDERED: LORazepam 2 mg VIAL 1 ml ONE (12:54)
[2020-12-31] MEDS ORDERED: Lorazepam PYXIS KEY ONE (12:54)
[2020-12-31] MEDS: Carbidopa/Levodop CR 50/200 TAB.CR PO SCH (21:06)
[2021-01-01] MEDS: Carbidopa/Levodop 25/100 MG TAB PO SCH ×7 (05:21→18:29)
[2021-01-01 08:22] LABS: Blood Urea Nitrogen 18 mg/dL (6-24); CO2 Carbon Dioxide 24 mmol/L (22-32); Calcium 8.6 mg/dL (8.6-10.3); Chloride 100 mmol/L (101-111); EGFR African American 141.9 (>60); EGFR Non-African American 117.3 (>60); Glucose 88 mg/dL (70-100); Sodium 131 mmol/L (135-145)
[2021-01-01 08:50] LABS: Anion Gap 7 mmol/L (2-11)
[2021-01-01] MEDS: Polyethylene Glycol 3350 17 GM PACKET PO SCH ×2 (09:39→21:38)
[2021-01-01] MEDS: Cholecalciferol (VIT D3) 1,000 unit TAB PO SCH (09:39)
[2021-01-01] MEDS: Magnesium Hydroxide LIQ 30 ML UDC PO SCH ×2 (09:42→21:38)
[2021-01-01] MEDS ORDERED: Calcium Carb (TUMS) 500 mg CHEW TAB PO ONE (11:03)
[2021-01-01] MEDS: Enoxaparin 40 MG/0.4 ML SYR SUBCUT SCH (13:38)
[2021-01-01] MEDS: Carbidopa/Levodop CR 50/200 TAB.CR PO SCH (21:38)
[2021-01-02] MEDS: Carbidopa/Levodop 25/100 MG TAB PO SCH ×7 (05:29→17:19)
[2021-01-02 06:44] LABS: Calcium 9.2 mg/dL (8.6-10.3); EGFR African American 124.5 (>60); EGFR Non-African American 102.9 (>60); Potassium 4.2 mmol/L (3.5-5.0)
[2021-01-02] MEDS: Magnesium Hydroxide LIQ 30 ML UDC PO SCH ×2 (07:25→21:48)
[2021-01-02] MEDS: Polyethylene Glycol 3350 17 GM PACKET PO SCH ×2 (07:25→21:48)
[2021-01-02] MEDS: Cholecalciferol (VIT D3) 1,000 unit TAB PO SCH (07:26)
[2021-01-02] MEDS: Enoxaparin 40 MG/0.4 ML SYR SUBCUT SCH (11:26)
[2021-01-02] MEDS: Carbidopa/Levodop CR 50/200 TAB.CR PO SCH (21:47)
[2021-01-02] MEDS ORDERED: Iohexol 300 (CONTRAST) 10 ML SDV IV ONE (21:56)
[2021-01-03] MEDS: Carbidopa/Levodop 25/100 MG TAB PO SCH ×6 (06:15→16:06)
[2021-01-03] MEDS: Magnesium Hydroxide LIQ 30 ML UDC PO SCH ×2 (08:42→08:48)
[2021-01-03] MEDS: Cholecalciferol (VIT D3) 1,000 unit TAB PO SCH (08:42)
[2021-01-03] MEDS: Polyethylene Glycol 3350 17 GM PACKET PO SCH (08:43)
[2021-01-03] MEDS: Enoxaparin 40 MG/0.4 ML SYR SUBCUT SCH (12:37)
[2021-01-03 15:36] VITALS: BP 139/70
== END 2021-01-03 18:00 | disposition home or self-care (01) | DRG 304 ==
LOC: ED 07:43 → MED 12:52
PROVIDERS: ADMIT Internal Medicine; ATTEND Internal Medicine

== ENCOUNTER 2021-01-12 07:27 | Inpatient (IN) ==
[~2021-01-12 07:27] MED LIST: Buffered Lidocaine 1% SYRIN 1 ml INTRADERM ONE; Bupivacaine 0.25% EPI 200,000 30 ML SDV ONE; Lactated Ringers 1000 ml BAG 1,000 ML IV SCH
[2021-01-12] MEDS ORDERED: Buffered Lidocaine 1% SYRIN 1 ml INTRADERM ONE (08:14)
[2021-01-12] MEDS ORDERED: Ertapenem 1 GM in NS 0.9% 50 ML IVPB ONE (08:30)
[2021-01-12 08:48] LABS: ABS Basophils 0.1 10^3/ul (0-0.2); ABS Lymphocytes 1.1 10^3/ul (1.0-4.8); ABS Monocytes 0.4 10^3/ul (0-0.8); ABS Neutrophils 8.2 10^3/ul (1.5-7.7); Eosinophil % 0.5 %; Hematocrit 36 % (35-47); Hemoglobin 12.2 g/dL (12.0-16.0); Lymphocyte % 11.4 %; Mean Corpuscular HGB Conc 34 g/dL (31-36); Mean Corpuscular Hemoglobin 30 pg (27-31); Mean Corpuscular Volume 86 fL (80-97); Mean Platelet Volume 7.3 fL (7.4-10.4); Platelet Count 508 10^3/uL (150-450); Red Blood Count 4.13 10^6 /uL (3.70-4.87); Red Cell Distribution Width 13 % (10-15); White Blood Count 9.9 10^3/uL (3.5-10.8)
[2021-01-12 09:08] LABS: Albumin 3.7 g/dL (3.2-5.2); Albumin/Globulin Ratio 1.9 (1-3); EGFR African American 106.7 (>60); EGFR Non-African American 88.2 (>60); Potassium 4.1 mmol/L (3.5-5.0); Total Bilirubin 0.4 mg/dL (0.2-1.0); Total Protein 5.7 g/dL (6.4-8.9)
[2021-01-12] MEDS ORDERED: Midazolam 2 mg/2 ml VIAL 1 mg/ml 2 ml VIAL (2 mg) ONE (09:36)
[2021-01-12] MEDS ORDERED: Dexamethasone IV 4 MG/ML VIAL 1 ml VIAL ONE (09:36)
[2021-01-12] MEDS ORDERED: Rocuronium 50 mg VIAL 10 mg/ml 5 ml VIAL (50 mg) ONE (09:36)
[2021-01-12] MEDS ORDERED: fentaNYL 250 mcg/5 ml 50 MCG/ML 5 ml VIAL (250 MCG) ONE (09:36)
[2021-01-12] MEDS ORDERED: Propofol 10 MG/ML 20 ML BTL ONE (09:36)
[2021-01-12] MEDS ORDERED: Phenylephrine 40 mcg/mL 10mL (400mcg) SYRINGE ONE ×2 (09:37→12:58)
[2021-01-12] MEDS ORDERED: Lidocaine 2% PF 5 ML VIAL ONE (09:37)
[2021-01-12] MEDS ORDERED: EPHEDrine (Pressors) 50 MG/ML VIAL ONE (10:16)
[2021-01-12] MEDS ORDERED: Ondansetron 4 mg VIAL 2 MG/ML 2 ml VIAL ONE (10:56)
[2021-01-12] MEDS ORDERED: Naloxone 0.4 mg VIAL 0.4 mg/ml 1 ml VIAL IV PRN (10:58)
[2021-01-12] MEDS ORDERED: Ondansetron 4 mg VIAL 2 MG/ML 2 ml VIAL IV PRN ×2 (10:58→11:58)
[2021-01-12] MEDS ORDERED: HYDROmorphone 1 MG/1 ML SYRINGE IV PRN (10:58)
[2021-01-12] MEDS ORDERED: fentaNYL 100 mcg/2 ml 50 MCG/ML VIAL IV PRN (10:58)
[2021-01-12] MEDS ORDERED: Acetaminophen IV 1 GM/100ML 100 ML IV PRN (10:58)
[2021-01-12] MEDS ORDERED: HYDROmorphone 0.5 MG/0.5 ML SYRINGE IV SLOW PU PRN (11:58)
[2021-01-12] MEDS ORDERED: Lactated Ringers 1000 ml BAG 1,000 ML IV SCH (12:00)
[2021-01-12] MEDS ORDERED: Acetaminophen IV 1 GM/100ML 100 ML IV ONE (12:05)
[2021-01-12] MEDS ORDERED: Metoprolol Tartrate 5 mg VIAL 5 ml VIAL (1 mg/ml) ONE (12:13)
[2021-01-12] MEDS ORDERED: Metoprolol Tartrate 5 mg VIAL 5 ml VIAL (1 mg/ml) IV PRN (12:13)
[2021-01-12] MEDS: Carbidopa/Levodop 25/100 MG TAB PO SCH ×4 (12:41→17:58)
[2021-01-12] MEDS ORDERED: Phenylephrine IV 10 MG/ML 1 ml VIAL ONE (13:07)
[2021-01-12] MEDS: Carbidopa/Levodop CR 50/200 TAB.CR PO SCH (22:46)
[2021-01-12] MEDS ORDERED: LORazepam 2 mg VIAL 1 ml IV PUSH ONE (23:21)
[2021-01-12] MEDS ORDERED: Lorazepam PYXIS KEY PRN (23:21)
[2021-01-13] MEDS: Heparin 5000 UNITS/ML 1 mL VIAL SUBCUT SCH ×3 (05:09→21:32)
[2021-01-13] MEDS: Carbidopa/Levodop 25/100 MG TAB PO SCH ×7 (05:11→18:24)
[2021-01-13 05:24] LABS: ABS Lymphocytes 1.3 10^3/ul (1.0-4.8); ABS Monocytes 0.7 10^3/ul (0-0.8); ABS Neutrophils 11.9 10^3/ul (1.5-7.7); Eosinophil % 0.2 %; Hematocrit 34 % (35-47); Lymphocyte % 9.3 %; Mean Corpuscular HGB Conc 33 g/dL (31-36); Mean Corpuscular Hemoglobin 28 pg (27-31); Mean Corpuscular Volume 86 fL (80-97); Mean Platelet Volume 7.9 fL (7.4-10.4); Platelet Count 452 10^3/uL (150-450); Red Cell Distribution Width 14 % (10-15)
[2021-01-13 05:36] LABS: Calcium 8.3 mg/dL (8.6-10.3); EGFR African American 108.7 (>60); EGFR Non-African American 89.8 (>60); Potassium 4.4 mmol/L (3.5-5.0)
[2021-01-13] MEDS ORDERED: LORazepam 2 mg VIAL 1 ml IV PUSH ONE (15:59)
[2021-01-13] MEDS ORDERED: Lorazepam PYXIS KEY PRN (15:59)
[2021-01-13] MEDS: Carbidopa/Levodop CR 50/200 TAB.CR PO SCH (21:25)
[2021-01-14] MEDS: Heparin 5000 UNITS/ML 1 mL VIAL SUBCUT SCH ×3 (06:19→21:30)
[2021-01-14] MEDS: Carbidopa/Levodop 25/100 MG TAB PO SCH ×7 (06:20→19:40)
[2021-01-14 08:42] LABS: ABS Eosinophils 0.1 10^3/ul (0-0.6); ABS Lymphocytes 0.7 10^3/ul (1.0-4.8); ABS Monocytes 0.4 10^3/ul (0-0.8); ABS Neutrophils 10.3 10^3/ul (1.5-7.7); Eosinophil % 0.6 %; Hematocrit 34 % (35-47); Hemoglobin 11.5 g/dL (12.0-16.0); Lymphocyte % 5.8 %; Mean Corpuscular HGB Conc 34 g/dL (31-36); Mean Corpuscular Hemoglobin 29 pg (27-31); Mean Corpuscular Volume 86 fL (80-97); Platelet Count 422 10^3/uL (150-450); Red Blood Count 3.97 10^6 /uL (3.70-4.87); Red Cell Distribution Width 14 % (10-15); White Blood Count 11.5 10^3/uL (3.5-10.8)
[2021-01-14] MEDS ORDERED: hydrALAZINE 20 mg/ml 1 ML Vial IV IV SLOW PU ONE (17:45)
[2021-01-14] MEDS: Carbidopa/Levodop CR 50/200 TAB.CR PO SCH (21:30)
[2021-01-15] MEDS: Heparin 5000 UNITS/ML 1 mL VIAL SUBCUT SCH ×2 (05:15→14:32)
[2021-01-15] MEDS: Carbidopa/Levodop 25/100 MG TAB PO SCH ×6 (05:15→14:41)
[2021-01-15 11:34] VITALS: BP 132/73
== END 2021-01-15 15:15 | disposition home health service (06) | DRG 330 ==
LOC: OR 07:27 → SSU 11:58
PROVIDERS: ADMIT Surgery; ATTEND Surgery

== ENCOUNTER 2022-02-22 11:51 | Inpatient (IN) ==
[2022-02-22 12:40] LABS: ABS Basophils 0.1 10^3/ul (0-0.2); ABS Eosinophils 0.2 10^3/ul (0-0.6); ABS Lymphocytes 0.9 10^3/ul (1.0-4.8); ABS Monocytes 0.7 10^3/ul (0-0.8); ABS Neutrophils 6.8 10^3/ul (1.5-7.7); Eosinophil % 2.5 %; Hematocrit 39 % (35-47); Hemoglobin 12.6 g/dL (12.0-16.0); Lymphocyte % 10.2 %; Mean Corpuscular HGB Conc 32 g/dL (31-36); Mean Corpuscular Hemoglobin 28 pg (27-31); Mean Corpuscular Volume 87 fL (80-97); Mean Platelet Volume 7.4 fL (7.4-10.4); Platelet Count 449 10^3/uL (150-450); Red Blood Count 4.52 10^6 /uL (3.70-4.87); Red Cell Distribution Width 14 % (10-15); White Blood Count 8.6 10^3/uL (3.5-10.8)
[2022-02-22 13:30] LABS: ALT 3 U/L (7-52); Albumin 3.9 g/dL (3.2-5.2); Albumin/Globulin Ratio 1.6 (1-3); Alkaline Phosphatase 228 U/L (35-149); Blood Urea Nitrogen 24 mg/dL (6-24); CO2 Carbon Dioxide 25 mmol/L (22-32); Calcium 8.9 mg/dL (8.6-10.3); Chloride 104 mmol/L (101-111); Creatine Kinase 103 U/L (10-223); Globulin 2.5 g/dL (2-4); Glucose 87 mg/dL (70-100); Sodium 132 mmol/L (135-145); Total Protein 6.4 g/dL (6.4-8.9); eGFR CKD-EPI 89.6 (>60)
[2022-02-22 13:33] LABS: Anion Gap 3 mmol/L (2-11)
[2022-02-22 13:39] LABS: Urine Appearance Clear; Urine Bilirubin Negative (Negative); Urine Blood Negative (Negative); Urine Color Yellow; Urine Glucose Negative (Negative); Urine Ketones Negative (Negative); Urine Protein Negative (Negative); Urine Urobilinogen 0.2 (Negative) (Negative)
[2022-02-22 13:40] LABS: Urine Nitrite Positive (Negative)
[2022-02-22 13:44] LABS: Urine Bacteria 1+ (Absent); Urine Red Blood Cell Trace(0-2/hpf) (Absent); Urine Squamous Epithelial Cell Present (Absent); Urine White Blood Cell 3+(>20/hpf) (Absent)
[2022-02-22] MEDS ORDERED: cefTRIAXone 1 gm/50 mL D5W 1 GM/50 ML BAG IV ONE (14:15)
[2022-02-22 15:28] LABS: Magnesium 2.1 mg/dL (1.9-2.7); Potassium Redraw 4.3 mmol/L (3.5-5.0)
[2022-02-22] MEDS: CMCS: Entacapone 200 mg TAB (NF) PO SCH (18:28)
[2022-02-22] MEDS: Carbidopa/Levodop 25/100 MG TAB PO SCH (18:28)
[2022-02-22] MEDS: Enoxaparin 40 MG/0.4 ML SYR SUBCUT SCH (18:28)
[2022-02-23] MEDS: Carbidopa/Levodop 25/100 MG TAB PO SCH ×8 (03:39→22:18)
[2022-02-23] MEDS: Carbidopa/Levodop CR 50/200 TAB.CR PO SCH ×2 (03:39→22:18)
[2022-02-23] MEDS: CMCS: Entacapone 200 mg TAB (NF) PO SCH ×5 (03:40→22:19)
[2022-02-23 05:46] LABS: ABS Basophils 0.1 10^3/ul (0-0.2); ABS Eosinophils 0.2 10^3/ul (0-0.6); ABS Lymphocytes 1.3 10^3/ul (1.0-4.8); ABS Monocytes 0.6 10^3/ul (0-0.8); ABS Neutrophils 5.1 10^3/ul (1.5-7.7); Eosinophil % 2.4 %; Hematocrit 38 % (35-47); Hemoglobin 12.2 g/dL (12.0-16.0); Lymphocyte % 18.4 %; Mean Corpuscular HGB Conc 32 g/dL (31-36); Mean Corpuscular Hemoglobin 28 pg (27-31); Mean Corpuscular Volume 87 fL (80-97); Mean Platelet Volume 7.2 fL (7.4-10.4); Platelet Count 433 10^3/uL (150-450); Red Blood Count 4.33 10^6 /uL (3.70-4.87); Red Cell Distribution Width 14 % (10-15); White Blood Count 7.3 10^3/uL (3.5-10.8)
[2022-02-23] MEDS: Polyethylene Glycol 3350 17 GM PACKET PO SCH (08:33)
[2022-02-23] MEDS ORDERED: Haloperidol 5 mg/ml SDV IV/IM 5 MG/ML AMP IV SLOW PU PRN (09:38)
[2022-02-23] MEDS: cefTRIAXone 1 gm/50 mL D5W 1 GM/50 ML BAG IV SCH (14:59)
[2022-02-23] MEDS: Enoxaparin 40 MG/0.4 ML SYR SUBCUT SCH (17:53)
[2022-02-24] MEDS: Carbidopa/Levodop 25/100 MG TAB PO SCH ×7 (01:00→20:00)
[2022-02-24] MEDS: Polyethylene Glycol 3350 17 GM PACKET PO SCH (10:22)
[2022-02-24] MEDS: CMCS: Entacapone 200 mg TAB (NF) PO SCH ×4 (10:22→20:00)
[2022-02-24] MEDS: cefTRIAXone 1 gm/50 mL D5W 1 GM/50 ML BAG IV SCH (16:48)
[2022-02-24] MEDS: Enoxaparin 40 MG/0.4 ML SYR SUBCUT SCH (17:13)
[2022-02-24] MEDS: Carbidopa/Levodop CR 50/200 TAB.CR PO SCH (20:00)
[2022-02-25] MEDS: Carbidopa/Levodop 25/100 MG TAB PO SCH ×7 (00:56→20:45)
[2022-02-25] MEDS: Polyethylene Glycol 3350 17 GM PACKET PO SCH (08:00)
[2022-02-25] MEDS: CMCS: Entacapone 200 mg TAB (NF) PO SCH ×5 (08:00→20:56)
[2022-02-25] MEDS: cefTRIAXone 1 gm/50 mL D5W 1 GM/50 ML BAG IV SCH (14:45)
[2022-02-25] MEDS: Enoxaparin 40 MG/0.4 ML SYR SUBCUT SCH (17:46)
[2022-02-25] MEDS: Carbidopa/Levodop CR 50/200 TAB.CR PO SCH (20:46)
[2022-02-26] MEDS: Carbidopa/Levodop 25/100 MG TAB PO SCH ×4 (08:09→21:20)
[2022-02-26] MEDS: Polyethylene Glycol 3350 17 GM PACKET PO SCH (08:10)
[2022-02-26] MEDS: CMCS: Entacapone 200 mg TAB (NF) PO SCH ×4 (08:10→21:20)
[2022-02-26] MEDS: cefTRIAXone 1 gm/50 mL D5W 1 GM/50 ML BAG IV SCH (13:30)
[2022-02-26] MEDS: Enoxaparin 40 MG/0.4 ML SYR SUBCUT SCH (17:45)
[2022-02-26] MEDS: Carbidopa/Levodop CR 50/200 TAB.CR PO SCH (21:20)
[2022-02-27 07:58] VITALS: BP 164/54
[2022-02-27] MEDS: Carbidopa/Levodop 25/100 MG TAB PO SCH (07:58)
[2022-02-27] MEDS: Polyethylene Glycol 3350 17 GM PACKET PO SCH (07:59)
[2022-02-27] MEDS: CMCS: Entacapone 200 mg TAB (NF) PO SCH (07:59)
== END 2022-02-27 10:10 | disposition home or self-care (01) | DRG 690 ==
LOC: ED 11:51 → EDHOLD 11:51 → SUATTDRO 15:38 → EDHOLD 16:45 → SSU 17:23 → SUATTDRO 02-24 07:00
PROVIDERS: ADMIT Student in an Organized Health Care Education/Training Program; ATTEND Internal Medicine